=== PATIENT | male | born 1985 | race Two or more races ===

== ENCOUNTER 2019-12-10 18:18 | Emergency (ER) | payer SELFPAY ==
[~2019-12-10] VITALS: Ht 182.9 cm; Wt 90.0 kg
[2019-12-10] MEDS: DIPHENHYDRAMINE 50MG/ML VIAL IV ONE ×2 (18:30→21:44)
[2019-12-10] MEDS ORDERED: METHYLPREDNISOLONE SOD SUCC 125 MG/2 ML VIAL IV ONE (18:30)
[2019-12-10] MEDS: FAMOTIDINE 20MG/2ML VIAL IV ONE (18:30)
[2019-12-10] MEDS ORDERED: RACEPINEPHRINE 2.25% 0.5ML NEB VIAL ONE (18:31)
[2019-12-10] MEDS: RACEPINEPHRINE 2.25% 0.5ML NEB VIAL HHN ONE (18:31)
[2019-12-10] MEDS ORDERED: EPINEPHRINE 1:1000 1 MG/ML AMP ONE (18:32)
[2019-12-10] MEDS: EPINEPHRINE 1:1000 1 MG/ML AMP IM ONE (18:33)
[2019-12-10] MEDS: ALBUTEROL (0.083%) 2.5MG/3ML NEB HHN SCH (19:11)
[2019-12-10] MEDS: MORPHINE SULFATE 2 MG/ML CPJ (NOT FOR IM USE) IV ONE (20:39)
[2019-12-10] MEDS: ONDANSETRON HCL 4MG/2ML INJ IV ONE (20:39)
[2019-12-10] MEDS ORDERED: DIPHENHYDRAMINE 50MG/ML VIAL IV ONE (21:00)
[2019-12-10 21:20] VITALS: BP 125/75
== END 2019-12-10 23:04 | disposition home or self-care (01) ==
LOC: ER 18:18
DX: T78.2XXA Anaphylactic shock, unspecified, initial encounter (principal); X58.XXXA Exposure to other specified factors, initial encounter; Z98.890 Other specified postprocedural states; Z88.8 Allergy status to other drugs, medicaments and biological substances
CPT/HCPCS: 94640; 96372; 96374; 96375; 96376; 99291; J1200; J2270; J2405; J2930; J3490; J7611

== ENCOUNTER 2023-02-05 14:58 | Inpatient (IN) | payer MEDICAID, OTHER ==
[2023-02-05] VITALS (12 sets, daily range): BP systolic 111–145; BP diastolic 31–97
[~2023-02-05] VITALS: Ht 167.6 cm; Wt 84.5 kg
[2023-02-05] MEDS ORDERED: RACEPINEPHRINE 2.25% 0.5ML NEB VIAL HHN ONE (15:00)
[2023-02-05] MEDS ORDERED: DIPHENHYDRAMINE 50MG/ML VIAL IV ONE ×2 (15:00→17:00)
[2023-02-05] MEDS ORDERED: FAMOTIDINE 20MG/2ML VIAL IV ONE (15:00)
[2023-02-05] MEDS ORDERED: EPINEPHRINE 1:1000 1 MG/ML AMP IM ONE (15:15)
[2023-02-05 15:59] LABS: CHLORIDE 110 mEq/L (98-107)
[2023-02-05] MEDS ORDERED: MORPHINE SULFATE 4 MG/ML CPJ (NOT FOR IM USE) IV ONE (16:00)
[2023-02-05 16:03] LABS: PROTHROMBIN TIME 10.9 sec (9.6-11.0)
[2023-02-05 16:06] LABS: BASOPHILS % 0.4 % (0.0-2.0); EOSINOPHILS % 0.8 % (0.0-5.0); HEMATOCRIT. 46.1 % (42.0-52.0); HEMOGLOBIN. 15.9 g/dL (14.0-18.0); LYMPHOCYTES % 32.9 % (20.0-50.0); MEAN CORPUSCULAR HEMOGLOBIN 30.7 pg (28.0-32.0); MEAN PLATELET VOLUME 8.4 fl (7.4-10.4); MONOCYTES % 8.3 % (2.0-8.0); NEUTROPHILS % 57.6 % (40.0-76.0); PLATELET 239 x1000/uL (130-400); RED BLOOD CELL COUNT 5.18 mill/uL (4.7-6.1); RED CELL DISTRIBUTION WIDTH 12.6 % (11.6-14.6)
[2023-02-05] MEDS ORDERED: DIPHENHYDRAMINE 50MG/ML VIAL ONE (18:49)
[2023-02-05] MEDS: DIPHENHYDRAMINE 50MG/ML VIAL IV PRN ×3 (18:51→23:56)
[2023-02-05] MEDS ORDERED: IPRATROPIUM/ALBUTEROL 0.5-3(2.5)MG/3ML NEB HHN PRN (19:00)
[2023-02-05] MEDS: FAMOTIDINE 20MG/2ML VIAL IV SCH (20:19)
[2023-02-05] MEDS: IPRATROPIUM/ALBUTEROL 0.5-3(2.5)MG/3ML NEB HHN SCH (20:37)
[2023-02-05] MEDS: RACEPINEPHRINE 2.25% 0.5ML NEB VIAL HHN PRN (20:41)
[2023-02-05] MEDS: MORPHINE SULFATE 2 MG/ML CPJ (NOT FOR IM USE) IV PRN (21:19)
[2023-02-05] MEDS ORDERED: EPINEPHRINE 1:1000 1 MG/ML AMP IM NR (22:00)
[2023-02-05] MEDS ORDERED: DIPHENHYDRAMINE 50MG/ML VIAL IV PRN (22:30)
[2023-02-06] VITALS (60 sets, daily range): BP systolic 86–155; BP diastolic 36–104
[2023-02-06] MEDS: RACEPINEPHRINE 2.25% 0.5ML NEB VIAL HHN PRN ×2 (00:46→04:28)
[2023-02-06] MEDS: IPRATROPIUM/ALBUTEROL 0.5-3(2.5)MG/3ML NEB HHN SCH ×4 (00:46→11:46)
[2023-02-06] MEDS: MORPHINE SULFATE 2 MG/ML CPJ (NOT FOR IM USE) IV PRN ×3 (01:21→10:06)
[2023-02-06] MEDS: DIPHENHYDRAMINE 50MG/ML VIAL IV PRN ×5 (02:48→12:53)
[2023-02-06] MEDS: FAMOTIDINE 20MG/2ML VIAL IV SCH (09:37)
[2023-02-06] MEDS ORDERED: DIPHENHYDRAMINE 50MG/ML VIAL IV PRN (13:30)
[2023-02-06 19:07] LABS: CLARITY URINE CLEAR (CLEAR); COLOR URINE YELLOW (YELLOW); KETONES URINE NEGATIVE (NEGATIVE); LEUKOCYTE ESTERASE URINE NEGATIVE (NEGATIVE); NITRITE URINE NEGATIVE (NEGATIVE); OCCULT BLOOD URINE NEGATIVE (NEGATIVE); PROTEIN URINE NEGATIVE (NEGATIVE); SPECIFIC GRAVITY URINE 1.023 (1.005-1.030); UROBILINOGEN URINE 0.2 E.U./dL (0.2-1.0)
[2023-02-06 19:29] LABS: *AMPHETAMINES SCREEN URINE NEGATIVE (NEGATIVE); *BARBITURATES SCREEN URINE NEGATIVE (NEGATIVE); *BENZODIAZEPINES SCREEN URINE NEGATIVE (NEGATIVE); *COCAINE SCREEN URINE NEGATIVE (NEGATIVE); CANNABINOID URINE SCREEN NEGATIVE (NEGATIVE); METHADONE URINE SCREEN NEGATIVE (NEGATIVE); OPIATES URINE SCREEN PRESUMTIVE POSITIVE (NEGATIVE); PHENCYCLIDINE URINE SCREEN NEGATIVE (NEGATIVE)
== END 2023-02-06 16:19 | disposition home or self-care (01) | DRG 133 ==
LOC: ER 14:58 → MICUSO 17:09 → EDBEDREQ 17:17 → EDBEDREQTM 17:17 → EDBEDREQSVC 17:17 → ENRESERV 17:55
PROVIDERS: ADMIT Internal Medicine; ATTEND Internal Medicine
DX: J96.01 Acute respiratory failure with hypoxia (principal); E66.9 Obesity, unspecified; Z68.30 Body mass index [BMI] 30.0-30.9, adult; Z20.822 Contact with and (suspected) exposure to COVID-19; Z88.8 Allergy status to other drugs, medicaments and biological substances; T78.49XA Other allergy, initial encounter; X58.XXXA Exposure to other specified factors, initial encounter
CPT/HCPCS: 36415; 80053; 80305; 81003; 85025; 87426; 94640; 99291; J1200; J2270; J3490

== ENCOUNTER 2023-04-02 01:01 | Emergency (ER) | payer MEDICAID, OTHER ==
[~2023-04-02] VITALS: Ht 172.7 cm; Wt 79.0 kg
[2023-04-02] MEDS ORDERED: SODIUM CHLORIDE 0.9% 1,000 ML IV ONE (01:15)
[2023-04-02] MEDS ORDERED: SODIUM CHLORIDE 0.9% 1,000 ML IV SCH (01:15)
[2023-04-02] MEDS ORDERED: RACEPINEPHRINE 2.25% 0.5ML NEB VIAL HHN PRN (01:15)
[2023-04-02] MEDS ORDERED: EPINEPHRINE 1:1000 1 MG/ML AMP IM ONE (01:15)
[2023-04-02] MEDS ORDERED: DIPHENHYDRAMINE 50MG/ML VIAL IV ONE (01:15)
[2023-04-02] MEDS ORDERED: FAMOTIDINE 20MG/2ML VIAL IV ONE (01:15)
[2023-04-02 01:31] LABS: BG BASE EXCESS -1.4 mmol/L (-2.0-2.0); BG CARBOXYHEMOGLOBIN 0.3 % (0.5-1.5); BG DEOXYHEMOGLOBIN 0.5 % (0.0-5.0); BG FRACTION INSPIRED OXYGEN 100; BG HCO3 ACT 22.5 mmol/L (22.0-26.0); BG METHEMOGLOBIN 0.3 % (0.0-1.5); BG OXYGEN SATURATION 99.5 % (92.0-98.5); BG OXYHEMOGLOBIN 98.9 % (94.0-97.0); BG PCO2 35.8 mmHg (35.0-45.0); BG PH 7.416 (7.350-7.450); BG PO2 502.5 mmHg (75.0-100.0); BG SAMPLE SITE RIGHT RADIAL; BG VENT MODE MASK - NRB
[2023-04-02 01:37] LABS: HEMATOCRIT. 48.4 % (42.0-52.0); HEMOGLOBIN. 16.3 g/dL (14.0-18.0); MEAN CORPUSCULAR HEMOGLOBIN 30.7 pg (28.0-32.0); MEAN PLATELET VOLUME 8.2 fl (7.4-10.4); PLATELET 337 x1000/uL (130-400); RED BLOOD CELL COUNT 5.32 mill/uL (4.7-6.1); RED CELL DISTRIBUTION WIDTH 13.2 % (11.6-14.6)
[2023-04-02 01:45] LABS: CHLORIDE 107 mEq/L (98-107)
[2023-04-02 01:49] VITALS: BP 136/74
[2023-04-02 01:53] LABS: ETHANOL BLOOD 93 mg/dL
[2023-04-02 05:44] LABS: PLATELET ESTIMATE NORMAL
== END 2023-04-02 02:06 | disposition left against medical advice (07) ==
LOC: ER 01:01
DX: T78.2XXA Anaphylactic shock, unspecified, initial encounter (principal); Z88.9 Allergy status to unspecified drugs, medicaments and biological substances; Z88.8 Allergy status to other drugs, medicaments and biological substances; X58.XXXA Exposure to other specified factors, initial encounter
CPT/HCPCS: 36415; 36600; 71045; 80053; 80320; 82375; 82805; 85025; 96372; 96374; 99284; J1200; J3490; J7030; G0480

== ENCOUNTER 2025-03-16 19:40 | Inpatient (IN) | payer MEDICAID, OTHER ==
[~2025-03-16] VITALS: Ht 177.8 cm; Wt 85.7 kg
[2025-03-16] MEDS ORDERED: NOREPINEPHRINE 8MG/250ML PMX 250 ML IV PRN (20:00)
[2025-03-16] MEDS ORDERED: DIPHENHYDRAMINE 50MG/ML VIAL IV ONE (20:00)
[2025-03-16] MEDS: EPINEPHRINE 1:1000 1 MG/ML AMP INJ NR (20:07)
[2025-03-16] MEDS: DIPHENHYDRAMINE 50MG/ML VIAL IV NR (20:08)
[2025-03-16] MEDS: FAMOTIDINE 20MG/2ML VIAL IV NR (20:08)
[2025-03-16] MEDS: DIPHENHYDRAMINE 50MG/ML VIAL IV ONE (20:29)
[2025-03-16] MEDS ORDERED: PROPOFOL 10MG/ML 100ML 100 ML IV PRN (20:30)
[2025-03-16] MEDS: RACEPINEPHRINE 2.25% 0.5ML NEB VIAL HHN ONE (20:39)
[2025-03-16 20:40] VITALS: PULSE 88; RESP 16; O2SAT 98
[2025-03-16 20:53] LABS: BASOPHILS % 0.3 % (0.0-2.0); EOSINOPHILS % 0.6 % (0.0-5.0); HEMATOCRIT. 44.1 % (42.0-52.0); HEMOGLOBIN. 15.1 g/dL (14.0-18.0); LYMPHOCYTES % 21.4 % (20.0-50.0); MEAN CORPUSCULAR HEMOGLOBIN 29.6 pg (28.0-32.0); MEAN CORPUSCULAR HGB CONC 34.2 g/dL (31.0-37.0); MEAN CORPUSCULAR VOLUME 86.5 fL (80.0-94.0); MEAN PLATELET VOLUME 7.4 fl (7.4-10.4); MONOCYTES % 7.4 % (2.0-8.0); NEUTROPHILS % 70.3 % (40.0-76.0); PLATELET 326 x1000/uL (130-400); RED CELL DISTRIBUTION WIDTH 13.1 % (11.6-14.6); WHITE BLOOD COUNT 8.6 x1000/uL (4.5-11.0)
[2025-03-16 20:59] LABS: POTASSIUM 3.6 mEq/L (3.5-5.1)
[2025-03-16] MEDS: LORAZEPAM 2MG/ML UD SYRINGE IV NR (20:59)
[2025-03-16] MEDS ORDERED: LORAZEPAM 2MG/ML INJ IV ONE (21:00)
[2025-03-16] MEDS: ONDANSETRON HCL 4MG/2ML INJ IV ONE (21:00)
[2025-03-16 21:01] LABS: CALCIUM 9.7 mg/dL (8.7-10.4)
[2025-03-16 21:05] LABS: CREATININE 1.4 mg/dL (0.6-1.3)
[2025-03-16 21:07] VITALS: PULSE 88; RESP 16; O2SAT 98
[2025-03-16] MEDS: PROPOFOL 10MG/ML 100ML 100 ML IV ONE (21:13)
[2025-03-16] MEDS: ROCURONIUM BROMIDE 10MG/ML VIAL 5ML IV ONE (21:14)
[2025-03-16] MEDS: MIDAZOLAM HCL 2 MG/2 ML VIAL IV ONE (22:22)
[2025-03-16 22:50] VITALS: PULSE 90; RESP 16; O2SAT 99
[2025-03-16] MEDS ORDERED: MIDAZOLAM HCL 2 MG/2 ML VIAL IM ONE (23:00)
[2025-03-16] MEDS: MIDAZOLAM HCL 2 MG/2 ML VIAL IV NR (23:10)
[2025-03-16] MEDS: MIDAZOLAM HCL 2 MG/2 ML VIAL IM ONE (23:11)
[2025-03-16] MEDS ORDERED: FENTANYL 2500MCG/250ML PMX 250 ML IV ONE (23:15)
[2025-03-16] MEDS ORDERED: MIDAZOLAM 100MG/100ML PMX 100 ML IV PRN (23:30)
[2025-03-17] VITALS (68 sets, daily range): BP systolic 93–150; BP diastolic 63–120; PULSE 60–114; RESP 8–25; TEMP 36.6–37; O2SAT 10–100
[2025-03-17] MEDS: FENTANYL CITRATE 2,500 MCG in SODIUM CHLORIDE 0.9% 200 ML IV PRN (00:24)
[2025-03-17] MEDS: PROPOFOL 10MG/ML 100ML 100 ML IV ONE (00:30)
[2025-03-17] MEDS: MAGNESIUM 2 G PREMIX 50 ML IV ONE (00:48)
[2025-03-17 01:20] LABS: BG BASE EXCESS -0.5 mmol/L (-2.0-3.0); BG CARBOXYHEMOGLOBIN 0.6 % (0.5-1.5); BG DEOXYHEMOGLOBIN 0.3 % (0.0-5.0); BG FRACTION INSPIRED OXYGEN 100; BG METHEMOGLOBIN 0.2 % (0.5-1.5); BG OXYGEN SATURATION 99.7 % (94.0-98.0); BG OXYHEMOGLOBIN 98.9 % (94.0-98.0); BG PCO2 43.9 mmHg (35.0-48.0); BG PH 7.373 (7.350-7.450); BG PO2 455.1 mmHg (83.0-108.0); BG SAMPLE SITE RIGHT RADIAL; BG TOTAL HEMOGLOBIN 16.7 g/dL (13.5-17.5); BG VENT MODE VENT - AC
[2025-03-17] MEDS: RACEPINEPHRINE 2.25% 0.5ML NEB VIAL HHN NR (02:30)
[2025-03-17] MEDS ORDERED: EPINEPHRINE 5 MG in SODIUM CHLORIDE 0.9% 245 ML IV PRN ×2 (02:30→02:45)
[2025-03-17] MEDS: HYDROMORPHONE HCL/PF 2MG/ML INJ IV SCH (03:02)
[2025-03-17] MEDS ORDERED: PROPOFOL 10MG/ML 100ML 100 ML IV PRN (04:00)
[2025-03-17] MEDS: DIPHENHYDRAMINE 50MG/ML VIAL IV PRN ×2 (05:58→08:12)
[2025-03-17 06:08] LABS: CARBON DIOXIDE 26 mEq/L (21-32); CHLORIDE 108 mEq/L (98-107); POTASSIUM 4.4 mEq/L (3.5-5.1); SODIUM 143 mEq/L (136-145)
[2025-03-17 06:09] LABS: CALCIUM 9.2 mg/dL (8.7-10.4)
[2025-03-17 06:12] LABS: TROPONIN I HIGH SENSITIVITY 11 ng/L (3.0-53)
[2025-03-17 06:13] LABS: CREATININE 1.2 mg/dL (0.6-1.3)
[2025-03-17 06:14] LABS: GLUCOSE 118 mg/dL (70-105); UREA NITROGEN BLOOD 13 mg/dL (9-23)
[2025-03-17 06:16] LABS: PHOSPHORUS 3.7 mg/dL (2.5-4.9)
[2025-03-17] MEDS ORDERED: DIPHENHYDRAMINE 50MG/ML VIAL IV NR (06:45)
[2025-03-17] MEDS: FAMOTIDINE 20MG/2ML VIAL IV SCH (08:12)
[2025-03-17] MEDS: HYDROMORPHONE HCL/PF 1MG/ML INJ IV SCH (08:46)
[2025-03-17] MEDS ORDERED: NALOXONE HCL 0.4MG/ML VIAL IV PRN (09:00)
[2025-03-17] MEDS ORDERED: HYDROCODONE/ACETAMINOPHEN 5/325MG TABLET PO PRN (09:00)
[2025-03-17 11:04] LABS: HEMATOCRIT 46.9 % (42.0-52.0); HEMOGLOBIN 15.6 g/dL (14.0-18.0); MEAN CORPUSCULAR HEMOGLOBIN 29.7 pg (28.0-32.0); MEAN CORPUSCULAR HGB CONC 33.2 g/dL (31.0-37.0); MEAN CORPUSCULAR VOLUME 89.4 fL (80.0-94.0); PLATELET 246 x1000/uL (130-400); RED BLOOD CELL COUNT 5.25 mill/uL (4.7-6.1); RED CELL DISTRIBUTION WIDTH 13.3 % (11.6-14.6); WHITE BLOOD COUNT 8.8 x1000/uL (4.5-11.0)
[2025-03-17] MEDS ORDERED: RACEPINEPHRINE 2.25% 0.5ML NEB VIAL HHN NR (11:45)
[2025-03-17] MEDS ORDERED: IPRATROPIUM/ALBUTEROL 0.5-3(2.5)MG/3ML NEB ONE (11:49)
[2025-03-17] MEDS ORDERED: DIPHENHYDRAMINE 50MG/ML VIAL IV PRN (13:00)
[2025-03-17] MEDS ORDERED: DIPHENHYDRAMINE 50MG/ML VIAL IM STA (13:26)
[2025-03-17] MEDS ORDERED: DIPHENHYDRAMINE 50MG/ML VIAL IM ONE (13:45)
[2025-03-17] MEDS ORDERED: DIPHENHYDRAMINE 50MG/ML VIAL IM PRN (14:00)
[2025-03-17] MEDS: DIPHENHYDRAMINE 50MG/ML VIAL IM NR (14:00)
[2025-03-17] MEDS: KETOROLAC 30MG/ML VIAL IV PRN (15:17)
[2025-03-17] MEDS: IPRATROPIUM/ALBUTEROL 0.5-3(2.5)MG/3ML NEB HHN SCH (16:22)
[2025-03-17] MEDS: LORATADINE 10MG TABLET PO SCH (16:38)
[2025-03-17] MEDS: MONTELUKAST SODIUM 10MG TABLET PO SCH (16:39)
[2025-03-17] MEDS: RACEPINEPHRINE 2.25% 0.5ML NEB VIAL HHN PRN (17:30)
[2025-03-17] MEDS: MORPHINE SULFATE 2 MG/ML INJ (NOT FOR IM USE) IV NR (17:39)
== END 2025-03-17 18:30 | disposition left against medical advice (07) | DRG 811 ==
LOC: ER 19:40 → MICUSO 22:49 → EDBEDREQ 23:05 → ENRESERV 03-17 02:32 → MICUSO 03-17 05:54
PROVIDERS: ADMIT Internal Medicine; ATTEND Internal Medicine
PROC: 5A1935Z Respiratory Ventilation, Less than 24 Consecutive Hours (ICD-10-PCS; principal; 2025-03-16)
PROC: 0BH17EZ Insertion of Endotracheal Airway into Trachea, Via Natural or Artificial Opening (ICD-10-PCS; 2025-03-16)
PROC: 5A09357 Assistance with Respiratory Ventilation, Less than 24 Consecutive Hours, Continuous Positive Airway Pressure (ICD-10-PCS; 2025-03-17)
DX: T78.2XXA Anaphylactic shock, unspecified, initial encounter (principal); N17.0 Acute kidney failure with tubular necrosis; J96.01 Acute respiratory failure with hypoxia; E87.8 Other disorders of electrolyte and fluid balance, not elsewhere classified; E86.0 Dehydration; Z53.29 Procedure and treatment not carried out because of patient's decision for other reasons; Z88.8 Allergy status to other drugs, medicaments and biological substances; Y92.89 Other specified places as the place of occurrence of the external cause
CPT/HCPCS: 31500; 31720; 36415; 36600; 36680; 71045; 80048; 82375; 82805; 83735; 84100; 84484; 85025; 85027; 93005; 94002; 94003; 94070; 94640; 94660; 99291; A4606; J1171; J1200; J1885; J2060; J2250; J2270; J2405; J2704; J3010; J3475; J3490